=== PATIENT | female | born 1990 | race Caucasian/White ===

== ENCOUNTER 2023-03-24 14:48 | Emergency (ER) | payer MEDICAID, OTHER ==
[2023-03-24] MEDS ORDERED: Acetaminophen 500 MG Tab PO ONE (15:11)
[2023-03-24] MEDS ORDERED: Bacitracin Oint 1 GM U/D Packet TOP ONE (15:16)
== END 2023-03-24 17:22 | disposition home or self-care (01) ==
LOC: JP.ED 14:48
DX: S06.300A Unspecified focal traumatic brain injury without loss of consciousness, initial encounter (principal); S06.0X0A Concussion without loss of consciousness, initial encounter; S16.1XXA Strain of muscle, fascia and tendon at neck level, initial encounter; S19.80XA Other specified injuries of unspecified part of neck, initial encounter; Z88.0 Allergy status to penicillin; W22.09XA Striking against other stationary object, initial encounter
CPT/HCPCS: 36415; 70450; 72125; 76377; 80307; 99284; A9270